=== PATIENT | female | born 1950 | race African-American/Black ===

== ENCOUNTER 2019-02-16 12:56 | Inpatient (IN) | payer MEDICARE, OTHER ==
[~2019-02-16] VITALS: Ht 157.5 cm; Wt 136.4 kg
--- NOTE | ~2019-02-16 | OP ---
PATIENT NAME: RICHARD PARK MEDICAL RECORD: [id number] :46 LOCATION:D.M2 D.2138 ADMISSION DATE:02/16/19 SURGEON: ADOLPH RAUSCH MD DATE OF OPERATION: 02/18/2019 PREOPERATIVE DIAGNOSES: 1. End-stage renal disease. 2. Diabetes mellitus. 3. Atrial fibrillation. 4. Congestive heart failure, undifferentiated. 5. Hypertension. 6. Coronary artery disease. 7. Anemia of chronic disease. 8. Morbid obesity. 9. Dementia. POSTOPERATIVE DIAGNOSES: 1. End-stage renal disease. 2. Diabetes mellitus. 3. Atrial fibrillation. 4. Congestive heart failure, undifferentiated. 5. Hypertension. 6. Coronary artery disease. 7. Anemia of chronic disease. 8. Morbid obesity. 9. Dementia. PROCEDURE: 1. Right IJ 19 cm HemoSplit catheter placement. 2. Fluoroscopic interpretation. SURGEON: Adolph Rausch MD REPORT OF PROCEDURE: The patient's right neck was prepped and draped in sterile fashion. Using ultrasound guidance, we visualized the right internal jugular vein. A total of 10 mL of 1% lidocaine with epinephrine was infused into the surrounding tissues of the neck and the right chest. A needle was used to cannulate the right internal jugular vein under ultrasound guidance. A guidewire was then advanced with ease. Fluoro was used to note that the wire was in good position in the venous system. A skin incision was made on the right lateral chest and the 19-cm HemoSplit was tunneled between this and the wire exit site. The multiple dilators were placed over the wire followed by the dilator trocar device. The wire and dilator were removed and the catheter tips was advanced through the trocar. The trocar was then removed and the catheter was pulled back until it was in good position at the right atrial superior vena caval junction. The catheter aspirated nonpulsatile dark blood and flushed easily with heparinized saline. This was sutured into place with 2-0 Prolenes and the skin incisions were closed with subcutaneous 5-0 Monocryl. COMPLICATIONS: None. CONDITION: Stable. ANESTHESIA: TIVA and local. OPERATIVE REPORT [id number] RICHARD PARK BLOOD LOSS: 30 mL. TRANSINT:[id number] Voice Confirmation ID: [id number] DOCUMENT ID: [id number] ADOLPH RAUSCH MD CC: [id number] DICTATION DATE: 02/18/19 1212 CUSTOMS COMPLIANCE DIRECTOR: 02/18/19 1509 ADM IN [facility] [address] [facility]
--- NOTE | 2019-02-16 13:30 | NUR ---
NEW PATIENT DIRECT ADMIT FROM REHAB FACILITY. PATIENT TRANSPORTED TO ROOM VIA WC AND KRYSTEN PAD VIA REHAB FACILITY PERSONNEL. WITH PT ASSIST AND KRYSTEN LIFT, PATIENT TRANSFERED TO BED. ORIENTED PATIENT TO ROOM AND CALL LIGHT. PATIENT IS LETHARGIC AND SPEECH IS SLURRED. VSS. IV TO RT FA 22 G WITH ONE ATTEMPT AND IS SL. PATIENT CHANGED INTO GOWN . PATIENT DENIES ANY NEEDS OR PAIN. WILL CONTINUE WITH PLAN OF CARE. SR UP X 2 BED IN LOW POSTION AND CALL LIGHT IN REACH.
[2019-02-16 15:04] LABS: BASOPHILS 0.1 % (0-2); EOSINOPHILS 1.4 % (0-7); HEMATOCRIT 26.6 % (36.0-48.0); HEMOGLOBIN 8.2 g/dL (12-16); IMMATURE GRANULOCYTES 0.3 % (0-5); LYMPHOCYTES 31.4 % (15-50); MCH 26.9 pg (26.0-34.0); MCHC 30.8 g/dL (31.0-37.0); MCV 87.2 fL (80.0-100.0); MEAN PLATELET VOLUME 9.4 fL (7.4-10.4); MONOCYTES 12.7 % (2-11); NEUTROPHILS 54.1 % (40-80); PLATELET COUNT 184 10x3/uL (130-400); RBC 3.05 10x6/uL (4.00-5.40); RDW 19.3 % (11.5-14.5); WBC 7.2 10x3/uL (4.8-10.8)
[2019-02-16 15:20] LABS: ALBUMIN 2.9 g/dL (3.4-5.0); ANION GAP 15.3 mmol/L (8-16); BILIRUBIN - TOTAL 1.04 mg/dL (0.2-1.3); CALCIUM 8.4 mg/dL (8.5-10.1); CARBON DIOXIDE 26.9 mmol/L (21.0-32.0); CREATININE - SERUM 3.5 mg/dL (0.6-1.3); PHOSPHOROUS 5.1 mg/dL (2.5-4.9); POTASSIUM - SERUM 4.2 mmol/L (3.5-5.1)
[2019-02-16 15:24] VITALS: BP 133/53
[2019-02-16] MEDS ORDERED: LANTUS SOL100 UNIT/1 SC (17:26)
[2019-02-16] MEDS ORDERED: NOVOLOG100 UNIT/1 SC (17:27)
[2019-02-16] MEDS ORDERED: PACERONE200 MG PO (17:28)
[2019-02-16] MEDS ORDERED: LIPITOR10 MG PO (17:29)
[2019-02-16] MEDS ORDERED: DOK100 MG PO (17:30)
[2019-02-16] MEDS ORDERED: BUMETANIDE0.5 MG PO (17:33)
[2019-02-16] MEDS ORDERED: COREG6.25 MG PO (17:35)
[2019-02-16] MEDS ORDERED: ACETAMINOPHEN500 M1 PO (17:36)
[2019-02-16] MEDS ORDERED: FLUTICASONE PRO16 GM NASAL (17:37)
[2019-02-16] MEDS ORDERED: NAMENDA10 MG PO (17:38)
[2019-02-16] MEDS ORDERED: ASPIRIN EC81 M1 PO (17:38)
--- NOTE | 2019-02-16 19:10 | NUR ---
PT SNORING LOUDLY, AROUSES TO VERBAL STIMULI, ALERT TO NAME ONLY, DINNER TRAY NOTED WITH 0% GONE. OFFERED PT THICK NOURISHMENT. PT TOOK ONE SIP WITH HOB ABOVE 35 DEGREES. PT HAS CONFUSION AND NURSE ATTEMPTED TO REORIENT. RIGHT FOREARM 22G NOTED. SWAB CAP PLACED PT HAS A LAMAR CATH WITH SEDIMENT PRESENT. HEELS CHECKED FOR SORES, NO SORES RIGHT HEEL HAS DRYNESS. PT HAS +2 +3 EDEMA LOWER EXTREM. S1S2, LUNGS HAVE FINE CRACKLES AND SHALLOW BREATHS. PLACED NAME AND DATE ON BOARD. PT HAS NO S/S OF DISTRESS. WILL CPOC
[2019-02-16 19:52] VITALS: BP 138/73; BMI 55.2
[2019-02-16 22:50] VITALS: BP 87/66
--- NOTE | 2019-02-16 22:50 | NUR ---
PT FSBS IS 174, 2 UNITS GIVEN ORDERED. PT NEEDING A UA. CLAMPED LAMAR TO ATTEMPT TO OBTAIN UA. PT ALERT TO NAME ONLY, CALLED OUT IN CONFUSION TO A VISITOR WALKING BY. PT OFFERED NORISHMENT. PT BEDLOW AND CALL LIGHT IN REACH. WILL CPOC
--- NOTE | 2019-02-17 01:05 | NUR ---
PT RIGHT FOREARM 22G PIV OUT WITH CATH INTACT. PT PULLED OUT WHEN REMOVING GOWN AGAIN. PT ALERT TO NAME AND ONLY. COLLECTED URINE AND TOOK TO LAB. PT BEDLOW AND CALL LIGHT IN REACH. WILL CPOC
[2019-02-17 01:08] LABS: APPEARANCE CLEAR (CLEAR); BACTERIA FEW /hpf (NONE SEEN); BILIRUBIN NEGATIVE (NEGATIVE); COLOR YELLOW (YELLOW); EPITHELIAL CELLS NSEEN /hpf (0-5); GLUCOSE NEGATIVE (NEGATIVE); KETONE NEGATIVE (NEGATIVE); NITRITE NEGATIVE (NEGATIVE); PROTEIN NEGATIVE (NEGATIVE); RED CELLS - URINE NONE SEEN /hpf (0-5); UROBILINOGEN NORMAL (NORMAL)
--- NOTE | 2019-02-17 02:26 | NUR ---
2 UNSUCCESSSFUL ATTEMTPS FOLLOWED BY 3 UNSUCCESSFUL ATTEMPTS FROM ANOTHER MED 2 NURSE. WILL CALL ER OR ICU TO TRY AND OBTAIN ACCESS.
--- NOTE | 2019-02-17 03:00 | NUR ---
CALLED ICU ABOUT NEEDING AN ACCESS
--- NOTE | 2019-02-17 04:05 | NUR ---
ICU NURSE ATTEMPTED 2 TIMES. UNSUCCESSFUL BOTH ATTEMPTS WILL CPOC
--- NOTE | 2019-02-17 05:38 | NUR ---
LEFT FOREARM IV 20G PLACED. BUMEX GIVEN. PT INCONT A SMALL AMOUNT OF STOOL. CLEANED PT AND TURNED TO RIGHT SIDE. PT HAS NO S/S OF DISTRESS. BEDLOW AND CALL LIGHT IN REACH. WILL CPOC
[2019-02-17 05:41] VITALS: BP 119/48
--- NOTE | 2019-02-17 07:14 | NUR ---
FSBS IS 139 NO INSULIN GIVEN PER SLIDING SCALE
[2019-02-17 07:27] VITALS: BP 151/59
[2019-02-17 11:10] VITALS: BP 119/62
[2019-02-17 12:39] LABS: ANION GAP 13.5 mmol/L (8-16); CALCIUM 8.8 mg/dL (8.5-10.1); CARBON DIOXIDE 27.6 mmol/L (21.0-32.0); CREATININE - SERUM 3.4 mg/dL (0.6-1.3); POTASSIUM - SERUM 4.1 mmol/L (3.5-5.1)
[2019-02-17 12:55] VITALS: Ht 157.5 cm; Wt 136.4 kg
[2019-02-17 13:10] LABS: BASOPHILS 0.2 % (0-2); EOSINOPHILS 1.8 % (0-7); HEMATOCRIT 26.4 % (36.0-48.0); HEMOGLOBIN 8.1 g/dL (12-16); IMMATURE GRANULOCYTES 0.2 % (0-5); LYMPHOCYTES 38.6 % (15-50); MCH 26.7 pg (26.0-34.0); MCHC 30.7 g/dL (31.0-37.0); MCV 87.1 fL (80.0-100.0); MEAN PLATELET VOLUME 9.5 fL (7.4-10.4); MONOCYTES 13.2 % (2-11); PLATELET COUNT 185 10x3/uL (130-400); RBC 3.03 10x6/uL (4.00-5.40); RDW 19.6 % (11.5-14.5); WBC 5.6 10x3/uL (4.8-10.8)
[2019-02-17 15:22] VITALS: BP 123/36
--- NOTE | 2019-02-17 19:51 | NUR ---
PT ASLEEP, AROUSES TO VERBAL STIMULI, PT ALERT TO NAME ONLY, UNABLE TO TELL NURSE PLACE,TIME,SITUATION. PT HAS LEFT FOREARM IV, COVERED WITH A BANDAGE FOR PROTECTION. PT PULLING ON IT EARLIER TODAY AND IT TOOK MORE THAN 5 ATTEMPTS TO GET IV LAST NIGHT. ALARM ON AND ACTIVE. PT BEDLOW AND CALL LIGHT IN REACH. NAME AND DATE PLACED ON BOARD. WILL CPOC
[2019-02-17 20:00] VITALS: BP 119/65
--- NOTE | 2019-02-17 22:00 | NUR ---
FSBS IS 225 4 UNITS GIVEN ORDERED. TURNED PT OFF OF BACK. PT COMPLAINS OF HAVING DISCOMFORT. ALERT TO NAME ONLY. HAS CONFUSION. WILL CPOC
--- NOTE | 2019-02-17 23:55 | NUR ---
NIGHT MEDICATIONS GIVEN, CRUSHED MEDICATIONS INTO APPLE SAUCE. TYLENOL GIVEN FOR PAIN. REPOSITIONED PT AND PROVIDED ROSELINE CARE/LAMAR CARE. PT IS ALERT TO NAME ONLY, EDEMA NOTED +2 +3 LOWER EXTREM AND ABDOMEN PT ALARM ON AND ACTIVE. NO S/S OF DISTRESS. NPO AFTER MIDNIGHT FOR HEMASPLIT PLACEMENT TOMORROW. WILL CPOC
[2019-02-18] VITALS: BP 114/68
--- NOTE | 2019-02-18 01:02 | NUR ---
PT REPOSITIONED TO RIGHT SIDE. BEDLOW AND CALL LIGHT IN REACH. WILL CPOC
[2019-02-18 04:30] VITALS: BP 120/58
--- NOTE | 2019-02-18 07:49 | NUR ---
PT ASLEEP LYING ON BACK IN BED. DID NOT WAKE I ENTERED, DID NOT FURTHER DISTURB AT THIS TIME. NO SIGNS/SYMPTOMS OF DISTRESS NOTED AT THIS TIME. CL CHAZ, SRX2.
[2019-02-18 08:26] LABS: BASOPHILS 0.4 % (0-2); EOSINOPHILS 1.6 % (0-7); HEMATOCRIT 27.6 % (36.0-48.0); HEMOGLOBIN 8.4 g/dL (12-16); IMMATURE GRANULOCYTES 0.4 % (0-5); LYMPHOCYTES 37.5 % (15-50); MCH 26.6 pg (26.0-34.0); MCHC 30.4 g/dL (31.0-37.0); MCV 87.3 fL (80.0-100.0); MEAN PLATELET VOLUME 9.5 fL (7.4-10.4); MONOCYTES 13.8 % (2-11); NEUTROPHILS 46.3 % (40-80); PLATELET COUNT 174 10x3/uL (130-400); RBC 3.16 10x6/uL (4.00-5.40); RDW 19.3 % (11.5-14.5); WBC 5.7 10x3/uL (4.8-10.8)
[2019-02-18 08:30] VITALS: BP 110/41
[2019-02-18 08:48] LABS: BILIRUBIN - TOTAL 1.28 mg/dL (0.2-1.3); CALCIUM 8.7 mg/dL (8.5-10.1); CARBON DIOXIDE 27.9 mmol/L (21.0-32.0); CREATININE - SERUM 3.6 mg/dL (0.6-1.3); POTASSIUM - SERUM 3.9 mmol/L (3.5-5.1)
--- NOTE | 2019-02-18 08:59 | NUR ---
WHILE GIVING PT MORNING MEDS CRUSHED IN PUDDING, SHE SPIT THEM ALL OUT AND REFUSED ANOTHER ATTEMPT.
[2019-02-18 09:15] LABS: HEPATITIS C ANTIBODY 0.1 S/CO RAT (0.0-0.9)
--- NOTE | 2019-02-18 13:50 | NUR ---
Nutrition follow-up: Diet: Puree with nectar thick liquids PO intake poor to fair; pt has been spitting food out per nursing Pt nonverbal Labs reviewed Wt: 300# +BM, loose RDN following.
--- NOTE | 2019-02-18 15:04 | NUR ---
I have reviewed this patient and I concur with the Shift Assessment completed by the Licensed Practical Nurse today this shift.
--- NOTE | 2019-02-18 17:47 | MORECARE ---
CASE MANAGEMENT DISCHARGE SUMMARY PATIENT: RICHARD PARK UNIT: [id number] ADM DATE: 02/16/19 AGE: 68 : 48 SEX: F ROOM/BED: D.5387 AUTHOR: CORNELIUS LEON PHYSICIAN: REFERRING PHYSICIAN: KEENAN SILVA MD DATE OF SERVICE: 02/18/19 Discharge Plan Patient Name: RICHARD PARK Facility: [facility]:[place] : 1950 Planned Disposition: Penitentiary Facility Anticipated Discharge Date: Discharge Date: Expected LOS: Initial Reviewer: [id number] Initial Review Date: 02/16/2019 Generated: 02/18/19 6:46 pm Comments DCP- Discharge Planning Updated by [id number]: Franki Browne on 02/18/19 4:[address] Patient Name: RICHARD PARK Admission Status: Urgent Accout number: [id number] Admission Date: 02-16-2019 : 1950 Admission Diagnosis: Attending: Keenan Silva Current LOS: 2 Anticipated DC Date: Planned Disposition: Penitentiary Facility Primary Insurance: MEDICARE A & B PLANNED EXERNAL PROVIDER: [facility] BED Discharge Planning Comments: CM ATTEMPTED TO ASSESS PT IN ROOM FOR DISCHARGE NEEDS AFTER RECEIVING ORDERS FOR 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 PT WAS NOT ABLE TO PARTICIPATE IN ASSESSMENT. CM CALLED BOTH EMERGENCY CONTACTS LISTED FOR PT, SUMAYA ESTEVEZ, DAUGHTER, , THERE WAS NO ANSWER; VICKIE PARK, SPOUSE, , CM LEFT MESSAGE ASKING FOR RETURN CALL. CM DID NOT RECEIVE RETURN CALL. PT'S ADDRESS ON FACE SHEET INDICATES [facility]. CM SPOKE TO MAREK OF [facility], [phone], WHO VERIFIED PT IS IN REHAB AT [place] AND THEY PLAN TO ACCEPT BACK AT DISCHARGE. RN KIERRA HOUSE NOTIFIED [facility] OF ORDER FOR OUTPATIENT DIALYSIS CLINIC ARRANGEMENT. CM FAXED UPDATE TO [facility] DION JARA AT [phone]. FOR DISCHARGE, FAX DISCHARGE INFORMATION TO [facility] AT [phone]. NURSE REPORT TO BE CALLED TO [facility] AT [phone]. CM WATIING OUTPATIENT DIALYSIS CLINIC ARRANGEMENT AND MEDICAL STABILITY FOR PT TO RETURN TO REHAB. Bilingual Sales Consultant: Franki Browne DCPIA - Discharge Planning Initial Assessment Updated by [id number]: Franki Browne on 02/18/19 5:42 pm * Is the patient Alert and Oriented? No * Preadmission Environment Penitentiary Facility * Facility Name [facility] External Providers External Provider: [facility] Next Contact Date: 02/18/2019 Service Request Date: Service Type: Resolution: Reviewer: Comments: Patient Name: RICHARD PARK Page [phone] at 1747 All edits/amendments must be made on the electronic document DICTATION DATE: 02/18/191745 RESEARCH ENVIRONMENTAL SCIENTIST: RONNY 02/18/191745 RPT#: [id number] DC DATE: STATUS: ADM IN [facility] [address] [place] [address] END OF REPORT
--- NOTE | 2019-02-18 18:50 | NUR ---
NAHUN FLOWERS ASSISTED IN CHANGING THE PT. SHE HAD A SMALL, SOFT B.M. PT IS NOW CLEAN/DRY AND PROPPED UP WITH WEDGES ON HER RIGHT SIDE. WIPED SPITTLE OFF OF PTS MOUTH, SISTERS AT BEDSIDE. QUESTIONS ANSWERED TO THE BEST OF MY ABILITY. NO COMPLAINTS/CONCERNS VOICED AT THIS TIME. CL IN REACH, SRX2.
--- NOTE | 2019-02-18 19:22 | NUR ---
PT IN BED RESTING QUIETLY WITH EYES CLOSED. TWO SISTERS IN ROOM.
[2019-02-18 20:08] VITALS: BP 140/107
--- NOTE | 2019-02-19 00:35 | NUR ---
PT IN BED RESTING. EVEN AND UNLABORED RESPIRATIONS NOTED AT THIS TIME. SISTER AT BEDSIDE.
[2019-02-19 00:45] VITALS: BP 131/70
[2019-02-19 03:49] VITALS: BP 151/64
[2019-02-19 06:56] LABS: BASOPHILS 0.2 % (0-2); EOSINOPHILS 0.9 % (0-7); HEMATOCRIT 26.6 % (36.0-48.0); IMMATURE GRANULOCYTES 0.3 % (0-5); LYMPHOCYTES 31.5 % (15-50); MCH 26.2 pg (26.0-34.0); MCHC 30.1 g/dL (31.0-37.0); MCV 87.2 fL (80.0-100.0); MEAN PLATELET VOLUME 9.6 fL (7.4-10.4); MONOCYTES 15.6 % (2-11); NEUTROPHILS 51.5 % (40-80); RBC 3.05 10x6/uL (4.00-5.40); RDW 19.4 % (11.5-14.5); WBC 5.8 10x3/uL (4.8-10.8)
[2019-02-19 06:57] LABS: PLATELET COUNT 137 10x3/uL (130-400)
[2019-02-19 07:17] LABS: ALBUMIN 2.8 g/dL (3.4-5.0); ANION GAP 13.4 mmol/L (8-16); BILIRUBIN - TOTAL 1.45 mg/dL (0.2-1.3); CALCIUM 8.7 mg/dL (8.5-10.1); CARBON DIOXIDE 28.3 mmol/L (21.0-32.0); CREATININE - SERUM 2.9 mg/dL (0.6-1.3); PHOSPHOROUS 4.2 mg/dL (2.5-4.9); POTASSIUM - SERUM 3.7 mmol/L (3.5-5.1); PROTEIN - SERUM 6.8 g/dL (6.4-8.2)
--- NOTE | 2019-02-19 07:39 | NUR ---
PT AWAKE AND CONFUSED, BUT MUCH MORE AWAKE THAN THE PREVIOUS DAY. TALKING SOME, HARD TO UNDERSTAND. ALERT TO NAME. SISTER AT BEDSIDE. ANSWERED QUESTIONS/CONCERNS TO THE BEST OF MY ABILITY. CL IN REACH, SRX2.
[2019-02-19 08:31] VITALS: BP 141/84
--- NOTE | 2019-02-19 10:43 | NUR ---
I have reviewed this patient and I concur with the Shift Assessment completed by the Licensed Practical Nurse today this shift.
[2019-02-19 11:30] VITALS: BP 120/39
--- NOTE | 2019-02-19 12:57 | NUR ---
PT GONE TO DIALYSIS.
--- NOTE | 2019-02-19 15:55 | NUR ---
PT BACK FROM DIALYSIS. RESTING PEACEFULLY. BREATHS EVEN AND REGULAR NO SIGNS/SYMPTOMS OF DISTRESS. CL IN REACH, SRX2. NO FAMILY AT BEDSIDE
--- NOTE | 2019-02-19 17:12 | NUR ---
PT BEING ASSISTED WITH MEAL BY JONN ZHANG. NO COMPLAINTS/CONCERNS AT THIS TIME. PT TOLD THE TECH SHE DID NOT WANT TO EAT AND TO "TRY IT" IF IT WAS SO EDIBLE. NO OTHER COMPLAINTS/CONCERNS STATED AT THIS TIME. CL IN REACH, SRX2.
--- NOTE | 2019-02-19 19:39 | NUR ---
EVENING ROUNDS COMPLETED. REPORT RECEIVED. PT SITTING UP IN BED WITH EYES CLOSED, RR EVEN AND UNLABORED. BED IN LOW POSITION. NO S/S OF DISTRESS. CALL LIGHT INR REACH WILL CTM.
[2019-02-19 20:14] VITALS: BP 102/24
[2019-02-19 23:45] VITALS: BP 135/52
[2019-02-20 03:49] VITALS: BP 118/58
--- NOTE | 2019-02-20 04:28 | NUR ---
I have reviewed this patient and I concur with the Shift Assessment completed by the Licensed Practical Nurse today this shift.
[2019-02-20 06:03] LABS: BASOPHILS 0.2 % (0-2); EOSINOPHILS 1.1 % (0-7); HEMATOCRIT 26.3 % (36.0-48.0); IMMATURE GRANULOCYTES 0.2 % (0-5); LYMPHOCYTES 32.8 % (15-50); MCH 26.8 pg (26.0-34.0); MCHC 30.4 g/dL (31.0-37.0); MEAN PLATELET VOLUME 10.2 fL (7.4-10.4); MONOCYTES 16.8 % (2-11); NEUTROPHILS 48.9 % (40-80); PLATELET COUNT 131 10x3/uL (130-400); RBC 2.99 10x6/uL (4.00-5.40); RDW 19.3 % (11.5-14.5); WBC 5.4 10x3/uL (4.8-10.8)
[2019-02-20 06:29] LABS: ALBUMIN 2.8 g/dL (3.4-5.0); ANION GAP 10.6 mmol/L (8-16); BILIRUBIN - TOTAL 1.23 mg/dL (0.2-1.3); CALCIUM 8.6 mg/dL (8.5-10.1); CREATININE - SERUM 2.6 mg/dL (0.6-1.3); PHOSPHOROUS 3.6 mg/dL (2.5-4.9); POTASSIUM - SERUM 3.6 mmol/L (3.5-5.1); PROTEIN - SERUM 6.6 g/dL (6.4-8.2)
--- NOTE | 2019-02-20 07:32 | NUR ---
PT AWAKE/CONFUSED. ORIENTED TO NAME AND SITUATION. N OCOMPALITNS/CONCERNS/QUESTIONS VOICED AT THIS TIME. CL IN REACH, SRX2. BROTHER AT BEDSIDE SLEEPING.
--- NOTE | 2019-02-20 09:57 | NUR ---
PT PULLED OFF DRESSING ON HEMASPLIT. WILL REDO FOLLOWING STANDARD PROTOCOL FOR CENTRAL LINE DRESSINGS
[2019-02-20 10:00] VITALS: BP 104/41
--- NOTE | 2019-02-20 10:10 | NUR ---
CENTRAL LINE DRESSING APPLIED TO RIGHT CHEST HEMASPLIT. PT IS RESTING PEACEFULLY. BROTHER AT BEDSIDE ALSO RESTING. CL IN REACH, SRX2.
--- NOTE | 2019-02-20 13:36 | NUR ---
PT RECIEVED [facility] BED BATH. HAD LARGE SOFT B.M. LINNENS CHANGED. PT IS CONFUSED BUT NO CHANGES FROM HER BASELINE. NOW RESTING COMFORTABLY.
[2019-02-20 16:43] VITALS: BP 121/46
[2019-02-20 17:14] VITALS: BP 129/66
--- NOTE | 2019-02-20 17:43 | NUR ---
I have reviewed this patient and I concur with the Shift Assessment completed by the Licensed Practical Nurse today this shift.
--- NOTE | 2019-02-20 18:00 | NUR ---
PT RESTING PEACEFULLY, ATTEMPTED TO WAKE FOR SUPPER BUT SHE WASN'T READY TO EAT. BROTHER ALSO SLEEPING, IN BEDSIDE RECLINER. DID NOT FURTHER DISTURB AT THSI TIME. CL IN REACH, SRX2.
[2019-02-20 19:55] VITALS: BP 123/52
--- NOTE | 2019-02-20 19:57 | NUR ---
EVENING ROUNDS COMPLETED. REPORT RECEIVED. PT SITTING UP IN BED WITH EYES OPEN, RR EVEN AND UNLABORED. NO S/S OF DISTRESS NOTED. AT BEDSIDE. BED IN LOW POSITION. INTRODUCED SELF TO PT. PT DENIES FURTHER NEEDS AT THIS TIME. CALL LIGHT IN REACH. WILL CTM.
[2019-02-21 03:43] VITALS: BP 121/41
--- NOTE | 2019-02-21 04:09 | NUR ---
I have reviewed this patient and I concur with the Shift Assessment completed by the Licensed Practical Nurse today this shift.
[2019-02-21 05:00] LABS: BASOPHILS 0.3 % (0-2); EOSINOPHILS 1.4 % (0-7); HEMATOCRIT 27.3 % (36.0-48.0); HEMOGLOBIN 8.4 g/dL (12-16); IMMATURE GRANULOCYTES 0.3 % (0-5); LYMPHOCYTES 37.7 % (15-50); MCH 26.9 pg (26.0-34.0); MCHC 30.8 g/dL (31.0-37.0); MCV 87.5 fL (80.0-100.0); MEAN PLATELET VOLUME 9.2 fL (7.4-10.4); MONOCYTES 14.1 % (2-11); NEUTROPHILS 46.2 % (40-80); PLATELET COUNT 130 10x3/uL (130-400); RBC 3.12 10x6/uL (4.00-5.40); RDW 19.3 % (11.5-14.5); WBC 6.2 10x3/uL (4.8-10.8)
[2019-02-21 05:23] LABS: ALBUMIN 2.9 g/dL (3.4-5.0); ANION GAP 13.7 mmol/L (8-16); BILIRUBIN - TOTAL 1.13 mg/dL (0.2-1.3); CALCIUM 8.4 mg/dL (8.5-10.1); CARBON DIOXIDE 27.9 mmol/L (21.0-32.0); CREATININE - SERUM 2.8 mg/dL (0.6-1.3); PHOSPHOROUS 3.9 mg/dL (2.5-4.9); POTASSIUM - SERUM 3.6 mmol/L (3.5-5.1); PROTEIN - SERUM 6.6 g/dL (6.4-8.2)
[2019-02-21 07:38] VITALS: BP 145/49
--- NOTE | 2019-02-21 07:44 | NUR ---
ROUNDING DONE WITH PATIENT SITTING UP IN BED, OBESE ABDOMEN. AT BEDSDIE. ON ROOM AIR. RIGHT CHEST HEMISPLIT SEEN WITH C/D/I DRESSING. LEFT FA PIV SEEN WITH SALINE LOCK, ORANGE SWAB CAP IN USE. STOCKINGNETTE COVERING SITE. LAMAR CATH PATENT WITH URINE. WILL MONITOR
--- NOTE | 2019-02-21 10:09 | NUR ---
REPOSITIONED TO LEFT SIDE WITH MYSELF AND FABIANO WRAY LPN USING THE FULLER PULL SLIP AND PLACING THE TWO BLACK WEDGES UNDER HER. PATIENT HAS GENERALIZED EDEMA TO LEGS, 3-4+ TO BILATERAL FEET. SKIN TO BOTTOM IS INTACT. WILL CONTINUE TO FOLLOW AND ASSESS FOR NEEDS. AWAITING TO SEE IF PATIENT WITH GO TO DIALYSIS TODAY.
--- NOTE | 2019-02-21 10:51 | NUR ---
TO DIALYSIS VIA BED.
--- NOTE | 2019-02-21 13:27 | NUR ---
STILL IN DIALYSIS.
--- NOTE | 2019-02-21 13:55 | NUR ---
RETURNS FROM DIALYSIS VIA BED. WANTS TO EAT.
--- NOTE | 2019-02-21 15:05 | NUR ---
PATIENT TURNED TO BACK/SLIGHTLY RIGHT SIDE WITH WEDGES PAST EATING LUNCH PAST DIALYSIS. CALL LIGHT IN USE.
[2019-02-21 16:14] VITALS: BP 128/51
[2019-02-21 20:00] VITALS: BP 128/52
--- NOTE | 2019-02-21 21:52 | NUR ---
EVENING ROUNDS COMPLETED. REPORT RECEIVED. PT SITTING UP IN BED WITH EYES CLOSED, RR EVEN AND UNLABORED. BED IN LOW POSITION. NO S/S OF DISTRESS NOTED. AT BEDSIDE. CALL LIGHT IN REACH. WILL CTM.
[2019-02-22] VITALS: BP 116/47
--- NOTE | 2019-02-22 03:23 | NUR ---
I have reviewed this patient and I concur with the Shift Assessment completed by the Licensed Practical Nurse today this shift.
[2019-02-22 04:00] VITALS: BP 111/50
[2019-02-22 06:35] LABS: ALBUMIN 2.7 g/dL (3.4-5.0); ANION GAP 11.8 mmol/L (8-16); BILIRUBIN - TOTAL 1.17 mg/dL (0.2-1.3); CALCIUM 8.1 mg/dL (8.5-10.1); CARBON DIOXIDE 28.6 mmol/L (21.0-32.0); CREATININE - SERUM 2.3 mg/dL (0.6-1.3); PHOSPHOROUS 3.2 mg/dL (2.5-4.9); POTASSIUM - SERUM 3.4 mmol/L (3.5-5.1); PROTEIN - SERUM 6.4 g/dL (6.4-8.2)
[2019-02-22 06:48] LABS: HEMATOCRIT 26.4 % (36.0-48.0); HEMOGLOBIN 8.2 g/dL (12-16); LYMPHOCYTES 34.7 % (15-50); MCH 27.6 pg (26.0-34.0); MCHC 31.1 g/dL (31.0-37.0); MCV 88.9 fL (80.0-100.0); MEAN PLATELET VOLUME 9.6 fL (7.4-10.4); NEUTROPHILS 50.8 % (40-80); PLATELET COUNT 108 10x3/uL (130-400); RBC 2.97 10x6/uL (4.00-5.40); RDW 19.6 % (11.5-14.5); WBC 5.6 10x3/uL (4.8-10.8)
--- NOTE | 2019-02-22 07:00 | NUR ---
ROUNDING DONE WITH PATIENT LAYING SLIGHTLY TO LEFT SIDE WITH EYES CLOSED, RESP ARE EVEN. SPOUSE IN CHAIR ASLEEP. HOB UP ON PATIENT AT 30 DEGREES. RIGHT CHEST HEMISPLIT IS SEEN WITH DRESSING C/D/I. LEFT WRIST PIV SEEN WITH SALINE LOCK, ORANGE SWAB CAP IN USE. CHRONIC LAMAR IN USE WITH DARK YELLOW URINE. WILL CPOC.
[2019-02-22 07:54] VITALS: BP 119/50
--- NOTE | 2019-02-22 08:31 | NUR ---
PATIENT TO PULL HER IV OUT AGAIN THIS AM. I TALKED TO BRENT BAEZ APN AND WILL RECEIVE NEW ORDERS.
--- NOTE | 2019-02-22 10:21 | NUR ---
TO DIALYSIS VIA BED.
--- NOTE | 2019-02-22 12:18 | NUR ---
STILL IN DIALYSIS AT THIS TIME.
--- NOTE | 2019-02-22 12:51 | NUR ---
RETURNS FROM DIALYSIS.
[2019-02-22 17:02] VITALS: BP 124/52
--- NOTE | 2019-02-22 19:30 | NUR ---
PATIENT LAYING IN BED. NO COMPLAINTS AT THIS TIME. NO DISTRESS NOTED.
[2019-02-22 20:00] VITALS: BP 120/46
[2019-02-23] VITALS: BP 112/61
--- NOTE | 2019-02-23 01:29 | NUR ---
PATIENT LAYING IN BED, EYES CLOSED, CHEST RISING AND FALLING. NO DISTRESS NOTED. AT BEDSIDE.
--- NOTE | 2019-02-23 02:20 | NUR ---
I have reviewed this patient and I concur with the Shift Assessment completed by the Licensed Practical Nurse today this shift.
[2019-02-23 04:00] VITALS: BP 122/47
[2019-02-23 05:43] LABS: BASOPHILS 0.2 % (0-2); EOSINOPHILS 0.8 % (0-7); HEMATOCRIT 25.8 % (36.0-48.0); HEMOGLOBIN 7.9 g/dL (12-16); IMMATURE GRANULOCYTES 0.3 % (0-5); LYMPHOCYTES 41.5 % (15-50); MCH 26.2 pg (26.0-34.0); MCHC 30.6 g/dL (31.0-37.0); MEAN PLATELET VOLUME 9.8 fL (7.4-10.4); MONOCYTES 12.3 % (2-11); NEUTROPHILS 44.9 % (40-80); PLATELET COUNT 103 10x3/uL (130-400); RBC 3.02 10x6/uL (4.00-5.40); WBC 6.2 10x3/uL (4.8-10.8)
[2019-02-23 05:58] LABS: MCV 85.4 fL (80.0-100.0)
[2019-02-23 06:15] LABS: ANION GAP 13.1 mmol/L (8-16); CALCIUM 8.2 mg/dL (8.5-10.1); CARBON DIOXIDE 26.4 mmol/L (21.0-32.0); CREATININE - SERUM 2.4 mg/dL (0.6-1.3); PHOSPHOROUS 3.1 mg/dL (2.5-4.9); POTASSIUM - SERUM 3.5 mmol/L (3.5-5.1)
--- NOTE | 2019-02-23 07:21 | NUR ---
MORNING ROUNDS MADE. PT LAYING IN BED RESTING COMFORTABLY. DENIES FURTHER CONCERNS AT THIS TIME. WILL CTM.
[2019-02-23 08:05] LABS: % SATURATION 5 % (15-55); IRON 17 ug/dl (35-150); TOTAL IRON BIND CAPACITY 297 ug/dl (260-445); UNSAT IRON BIND CAPACITY 280 ug/dl (150-375)
--- NOTE | 2019-02-23 09:05 | NUR ---
PT SITTING UP IN BED RESTING. VITALS STABLE. TOOK MEDS ONE AT A TIME, SWALLOWED WITHOUT DIFFICULTY. THICKENED WATER. FAMILY AT BEDSIDE. ASSISTED UP ON PILLOWS. NO FURTHER CONCERNS AT THIS TIME. WILL CTM.
--- NOTE | 2019-02-23 11:04 | MORECARE ---
CASE MANAGEMENT DISCHARGE SUMMARY PATIENT: RICHARD DING UNIT: [id number] ADM DATE: 02/16/19 AGE: 68 : 48 SEX: F ROOM/BED: D.4434 AUTHOR: CORNELIUS LEON PHYSICIAN: REFERRING PHYSICIAN: KEENAN SILVA MD DATE OF SERVICE: 02/23/19 Discharge Plan Patient Name: RICHARD DING Facility: [facility]:[place] : 1950 Planned Disposition: Senior Living Facility Anticipated Discharge Date: Discharge Date: Expected LOS: Initial Reviewer: [id number] Initial Review Date: 02/16/2019 Generated: 02/23/19 12:04 pm Comments DCP- Discharge Planning Updated by [id number]: Franki Browne on 02/23/19 10:[address] Patient Name: RICHARD DING Encounter No: [id number] : 1950 Primary Insurance: MEDICARE A & B Anticipated DC Date: Planned Disposition: Senior Living Facility External Planned Provider: [facility] Discharge Planning Comments: CM SPOKE TO PT AND SPOUSE, COY, IN ROOM REGARDING DISCHARGE PLANNING AND NEEDS. SPOUSE CONFIRMS PLAN FOR PT TO RETURN TO [facility] FOR REHAB AT DISCHARGE. PT'S DAUGHTER WORKS THERE. SENIOR LIVING FACILITY LISTING GIVEN, CHOICE SIGNED FOR [facility]. IMPORTANT MESSAGE FROM MEDICARE PROVIDED AND EXPLAINED. CM SPOKE TO MAREK OF [facility] AT [facility], WHO VERIFIED PT IS IN REHAB AT [facility] AND THEY PLAN TO ACCEPT BACK AT DISCHARGE. MAREK MET WITH PT AND SPOUSE IN ROOM. FOR DISCHARGE, FAX DISCHARGE INFORMATION TO [facility] AT [phone]. NURSE REPORT TO BE CALLED TO [facility] AT [phone]. CM WATIING OUTPATIENT DIALYSIS CLINIC ARRANGEMENT AND MEDICAL STABILITY FOR PT TO RETURN TO REHAB. 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 PT WAS NOT ABLE TO PARTICIPATE IN ASSESSMENT. CM CALLED BOTH EMERGENCY CONTACTS LISTED FOR PT, SUMAYA ESTEVEZ, DAUGHTER, , THERE WAS NO ANSWER; RUBIO DING, SPOUSE, , CM LEFT MESSAGE ASKING FOR RETURN CALL. CM DID NOT RECEIVE RETURN CALL. PT'S ADDRESS ON FACE SHEET INDICATES [facility]. CM SPOKE TO MAREK OF [facility], [phone], WHO VERIFIED PT IS IN REHAB AT [facility] AND THEY PLAN TO ACCEPT BACK AT DISCHARGE. RN KIERRA CHRISTY NOTIFIED [facility] OF ORDER FOR OUTPATIENT DIALYSIS CLINIC ARRANGEMENT. CM FAXED UPDATE TO [facility] DION JEWELLY AT [phone]. FOR DISCHARGE, FAX DISCHARGE INFORMATION TO [facility] AT [phone]. NURSE REPORT TO BE CALLED TO [facility] AT [phone]. CM WATIING OUTPATIENT DIALYSIS CLINIC ARRANGEMENT AND MEDICAL STABILITY FOR PT TO RETURN TO REHAB. Concrete Batching Plant Operator: Franki Browne DCPIA - Discharge Planning Initial Assessment Updated by [id number]: Franki Browne on 02/18/19 5:42 pm * Is the patient Alert and Oriented? No * Preadmission Environment Senior Living Facility * Facility Name [facility] Coverage Notice Reviewer: [id number] Zina Browne Notice Issued Date-Time: 02/23/2019 8:25 Notice Type: Patient Choice Letter Notice Delivered To: Family Member Relationship to Patient: Spouse Meteorologist Liaison Name: rubio ding Delivery Method: HAND - Hand Delivered Hazel Days: Prior Verbal Notification: Recipient Understood Notice: Yes Recipient Signature: Yes Med Rec Note Co-signed by Attending: Coverage Notice Comment: carine guadalupe Reviewer: [id number] Zina Browne Notice Issued Date-Time: 02/23/2019 8:25 Notice Type: IM Discharge Notice Notice Delivered To: Family Member Relationship to Patient: Spouse Meteorologist Liaison Name: rubio ding Delivery Method: HAND - Hand Delivered Hazel Days: Prior Verbal Notification: Recipient Understood Notice: Yes Recipient Signature: Yes Med Rec Note Co-signed by Attending: Coverage Notice Comment: Last DP export: 02/18/19 4:47 p Patient Name: RICHARD DING Page 11975 at 1104 All edits/amendments must be made on the electronic document DICTATION DATE: 02/23/191102 MILITARY TECHNOLOGY MANAGER: RONNY 02/23/191102 RPT#: [id number] DC DATE: STATUS: ADM IN [facility] [address] [place] [address] END OF REPORT
[2019-02-23 11:59] VITALS: BP 102/57
--- NOTE | 2019-02-23 13:57 | NUR ---
Nutritional follow-up: Diet: Renal ADA puree with honey thick liquids PO intake improved; now ~75% average of meals Labs reviewed Wt: 301# RDN following.
--- NOTE | 2019-02-23 14:07 | NUR ---
I have reviewed this patient and I concur with the Shift Assessment completed by the Licensed Practical Nurse today this shift.
[2019-02-23 16:54] VITALS: BP 136/53
--- NOTE | 2019-02-23 19:37 | NUR ---
PATIENT LAYING IN BED. EYES CLOSED, CHEST RISING AND FALLING. NO DISTRESS NOTED. AT BEDSIDE,.
[2019-02-23 20:00] VITALS: BP 120/47
--- NOTE | 2019-02-23 21:41 | NUR ---
PATIENT WOKEN TO TAKE PM MEDICATIONS, PATIENT REFUSED TO TAKE LIPITOR. PATIENT WAS HARD TO WAKE. STATES SHE HAS DAYS THAT SHE SLEEPS HARD. WHEN NAME WAS CALLED SHE WOULD SQUINT HER EYES. COLD WASH CLOTH ON FOREHEAD WOKE PATIENT UP WHERE SHE STATED "LEAVE ME ALONE, I DON'T WANT TO TAKE ANY PILLS. I JUST WANT TO SLEEP."
[2019-02-24] VITALS: BP 127/57
--- NOTE | 2019-02-24 03:04 | NUR ---
PATIENT LAYING IN BED, EYES CLOSED, CHEST RISING AND FALLING. AT BEDSIDE.
[2019-02-24 04:00] VITALS: BP 123/81
[2019-02-24 04:45] LABS: BASOPHILS 0.3 % (0-2); EOSINOPHILS 1.4 % (0-7); HEMOGLOBIN 8.3 g/dL (12-16); IMMATURE GRANULOCYTES 0.3 % (0-5); LYMPHOCYTES 39.4 % (15-50); MCH 26.3 pg (26.0-34.0); MCHC 30.7 g/dL (31.0-37.0); MCV 85.7 fL (80.0-100.0); MEAN PLATELET VOLUME 10.1 fL (7.4-10.4); MONOCYTES 15.1 % (2-11); NEUTROPHILS 43.5 % (40-80); RBC 3.15 10x6/uL (4.00-5.40); WBC 6.3 10x3/uL (4.8-10.8)
[2019-02-24 04:46] LABS: PLATELET COUNT 127 10x3/uL (130-400)
[2019-02-24 04:59] LABS: ANION GAP 11.4 mmol/L (8-16); CALCIUM 8.5 mg/dL (8.5-10.1); CARBON DIOXIDE 28.3 mmol/L (21.0-32.0); POTASSIUM - SERUM 3.7 mmol/L (3.5-5.1)
--- NOTE | 2019-02-24 06:00 | NUR ---
PATIENT LAYING IN BED. NO COMPLAINTS AT THIS TIME. NO DISTRESS NOTED. AT BEDSIDE.
[2019-02-24 07:34] VITALS: BP 118/52
--- NOTE | 2019-02-24 09:52 | MORECARE ---
CASE MANAGEMENT DISCHARGE SUMMARY PATIENT: RICHARD DING UNIT: [id number] ADM DATE: 02/16/19 AGE: 68 : 48 SEX: F ROOM/BED: D.8107 AUTHOR: CORNELIUS LEON PHYSICIAN: REFERRING PHYSICIAN: KEENAN SILVA MD DATE OF SERVICE: 02/24/19 Discharge Plan Patient Name: RICHARD DING Facility: [facility]:[place] : 1950 Planned Disposition: Senior Living Facility Anticipated Discharge Date: Discharge Date: Expected LOS: Initial Reviewer: [id number] Initial Review Date: 02/16/2019 Generated: 02/24/19 10:52 am Comments DCP- Discharge Planning Updated by [id number]: Franki Browne on 02/24/19 8:[address] Patient Name: RICHARD DING Encounter No: [id number] : 1950 Primary Insurance: MEDICARE A & B Anticipated DC Date: Planned Disposition: Senior Living Facility External Planned Provider: [facility] REH[facility] B[facility] Discharge Planning Comments: CM FAXED UPDATE TO [facility] AT [phone]. [facility] IS WORKING ON OUTPATIENT DIALYSIS CLINIC ARRANGEMENT. FOR DISCHARGE, FAX DISCHARGE INFORMATION TO [facility] AT [phone]. NURSE REPORT TO BE CALLED TO [facility] AT [phone]. [facility] TO ARRANGE VAN TRASPORTATION. Automation Tech: Franki Browne DCP- Discharge Planning Updated by [id number]: Franki Browne on 02/23/19 10:[address] Patient Name: RICHARD DING Encounter No: [id number] : 1950 Primary Insurance: MEDICARE A & B Anticipated DC Date: Planned Disposition: Senior Living Facility External Planned Provider: [facility] Discharge Planning Comments: CM SPOKE TO PT AND SPOUSE, COY, IN ROOM REGARDING DISCHARGE PLANNING AND NEEDS. SPOUSE CONFIRMS PLAN FOR PT TO RETURN TO [facility] FOR REHAB AT DISCHARGE. PT'S DAUGHTER WORKS THERE. NURSING HOME FACILITY LISTING GIVEN, CHOICE SIGNED FOR [facility]. IMPORTANT MESSAGE FROM MEDICARE PROVIDED AND EXPLAINED. CM SPOKE TO MAREK OF [facility] AT [facility], WHO VERIFIED PT IS IN REHAB AT [place] AND THEY PLAN TO ACCEPT BACK AT DISCHARGE. MAREK MET WITH PT AND SPOUSE IN ROOM. FOR DISCHARGE, FAX DISCHARGE INFORMATION TO [facility] AT [phone]. NURSE REPORT TO BE CALLED TO [facility] AT [phone]. CM WATIING OUTPATIENT DIALYSIS CLINIC ARRANGEMENT AND MEDICAL STABILITY FOR PT TO RETURN TO REHAB. Automation Tech: Franki Browne DCP- Discharge Planning Updated by [email or web address]: Frnaki Browne on 02/18/19 4:[address] Patient Name: RICHARD DING Admission Status: Urgent Accout number: [id number] Admission Date: 02-16-2019 : 1950 Admission Diagnosis: Attending: Keenan Silva Current LOS: 2 Anticipated DC Date: Planned Disposition: Senior Living Facility Primary Insurance: MEDICARE A & B PLANNED EXERNAL PROVIDER: [facility] MEDICARE REHAB BED Discharge Planning Comments: CM ATTEMPTED TO ASSESS PT IN ROOM FOR DISCHARGE NEEDS AFTER RECEIVING ORDERS FOR PETROLEUM REFINERY WORKER CONSULT AND OUTPATIENT DIALYSIS UNIT ARRANGEMENT. PT WAS NOT ABLE TO PARTICIPATE IN ASSESSMENT. CM CALLED BOTH EMERGENCY CONTACTS LISTED FOR PT, SUMAYA ESTEVEZ, DAUGHTER, , THERE WAS NO ANSWER; RUBIO DING, SPOUSE, , CM LEFT MESSAGE ASKING FOR RETURN CALL. CM DID NOT RECEIVE RETURN CALL. PT'S ADDRESS ON FACE SHEET INDICATES [facility]. CM SPOKE TO MAREK OF [facility], [phone], WHO VERIFIED PT IS IN REHAB AT [place] AND THEY PLAN TO ACCEPT BACK AT DISCHARGE. RN HOUSE NOTIFIED [facility] OF ORDER FOR OUTPATIENT DIALYSIS CLINIC ARRANGEMENT. CM FAXED UPDATE TO [facility] AT [phone]. FOR DISCHARGE, FAX DISCHARGE INFORMATION TO [facility] AT [phone]. NURSE REPORT TO BE CALLED TO [facility] AT [phone]. CM WATIING OUTPATIENT DIALYSIS CLINIC ARRANGEMENT AND MEDICAL STABILITY FOR PT TO RETURN TO REHAB. Automation Tech: Franki Browne DCPIA - Discharge Planning Initial Assessment Updated by [id number]: Franki Browne on 02/18/19 5:42 pm * Is the patient Alert and Oriented? No * Preadmission Environment Senior Living Facility * [facility] Coverage Notice Reviewer: [id number] Zina Browne Notice Issued Date-Time: 02/23/2019 8:25 Notice Type: Patient Choice Letter Notice Delivered To: Family Member Relationship to Patient: Spouse Education Supervisor Name: rubio ding Delivery Method: HAND - Hand Delivered Hazel Days: Prior Verbal Notification: Recipient Understood Notice: Yes Recipient Signature: Yes Med Rec Note Co-signed by Attending: Coverage Notice Comment: carine ferris Reviewer: [id number] Zina Browne Notice Issued Date-Time: 02/23/2019 8:25 Notice Type: IM Discharge Notice Notice Delivered To: Family Member Relationship to Patient: Spouse Education Supervisor Name: rubio ding Delivery Method: HAND - Hand Delivered Hazel Days: Prior Verbal Notification: Recipient Understood Notice: Yes Recipient Signature: Yes Med Rec Note Co-signed by Attending: Coverage Notice Comment: Last DP export: 02/23/19 10:04 a Patient Name: RICHARD DING Page 11272 at 0952 All edits/amendments must be made on the electronic document DICTATION DATE: 02/24/1953 CHUCKING AND BORING MACHINE OPERATOR: RONNY 02/24/1953 RPT#: [id number] DC DATE: STATUS: ADM IN [facility] [address] [place] [address] END OF REPORT
[2019-02-24 11:52] VITALS: BP 114/54
--- NOTE | 2019-02-24 15:20 | NUR ---
PATIENT RESTING. RESTING. CL IN REACH. WCTM
[2019-02-24 16:22] VITALS: BP 115/49
--- NOTE | 2019-02-24 16:23 | NUR ---
PATIENT IN DIALYSIS. FAMILY IN ROOM.
--- NOTE | 2019-02-24 19:20 | NUR ---
REPORT RECIEVED AND ROUNDING COMPLETE. PT IS IN DIALYSIS AT THIS TIME.
--- NOTE | 2019-02-24 19:45 | NUR ---
PT BACK TO ROOM A THIS TIME. DIALYSIS WAS ABLR TO PULL 3L OFF TODAY. PT IS CONFUSED AND ONLY ORIENTED TO HERSELF. PT'S AT BEDISDE. NO OTHER NEEDS AT THIS TIME CALL LIGHT WITHIN REACH AND BED IN LOWEST POSITION.
[2019-02-24 20:00] VITALS: BP 113/36
--- NOTE | 2019-02-24 21:42 | NUR ---
I have reviewed this patient and I concur with the Shift Assessment completed by the Licensed Practical Nurse today this shift.
[2019-02-25] VITALS: BP 114/40
[2019-02-25 04:00] VITALS: BP 114/69
[2019-02-25 06:14] LABS: BASOPHILS 0.3 % (0-2); EOSINOPHILS 1.2 % (0-7); HEMATOCRIT 25.3 % (36.0-48.0); HEMOGLOBIN 7.7 g/dL (12-16); IMMATURE GRANULOCYTES 0.2 % (0-5); LYMPHOCYTES 30.9 % (15-50); MCHC 30.4 g/dL (31.0-37.0); MCV 85.5 fL (80.0-100.0); MEAN PLATELET VOLUME 9.5 fL (7.4-10.4); MONOCYTES 15.1 % (2-11); NEUTROPHILS 52.3 % (40-80); PLATELET COUNT 107 10x3/uL (130-400); RBC 2.96 10x6/uL (4.00-5.40); RDW 18.9 % (11.5-14.5); WBC 6.5 10x3/uL (4.8-10.8)
[2019-02-25 06:30] LABS: ANION GAP 7.4 mmol/L (8-16); CALCIUM 8.2 mg/dL (8.5-10.1); CARBON DIOXIDE 29.8 mmol/L (21.0-32.0); CREATININE - SERUM 2.4 mg/dL (0.6-1.3); POTASSIUM - SERUM 3.2 mmol/L (3.5-5.1)
--- NOTE | 2019-02-25 07:14 | NUR ---
PT AWAKE/ALERT, ORIENTED TO SELF. AT BEDSIDE. PT IS CLEAN AND DRY, NO COMPLAINTS/CONCERNS FROM PT OR FAMILY VOICED AT THIS TIME. CL IN REACH, SRX2.
[2019-02-25 08:12] VITALS: BP 124/45
--- NOTE | 2019-02-25 10:08 | NUR ---
I have reviewed this patient and I concur with the Shift Assessment completed by the Licensed Practical Nurse today this shift.
--- NOTE | 2019-02-25 11:27 | EC ---
PATIENT:RICHARD PARK DATE OF SERVICE: 02/16/19 SEX: F MEDICAL RECORD: [id number] DATE OF : [birth year] LOCATION:D.M2 D.213 AGE OF PATIENT: 68 ADMISSION DATE: 02/16/19 REFERRING PHYSICIAN: INTERPRETING PHYSICIAN: CAMILLA CAMEJO MD ECHOCARDIOGRAM REPORT ECHO CHARGES 4 ECHO COMPLETE Date: 02/16/19 CLINICAL DIAGNOSIS: CHF ECHOCARDIOGRAPHIC MEASUREMENTS (adult normal given) AC root (d.<3.7cm) 3.3 cm LV Septum d (<1.2 cm> 1.2 cm Valve Excursion 1.4 cm LV Septum (systole) 1.7 cm Left Atria (s.<4.0cm> 5.0 cm LVPW d(<1.2cm) 1.2 cm RV (d.<2.3cm) 3.5 cm LVPW (sytole) 1.6 cm LV diastole(<5.6CM) 6.3 cm MV E-F(>70mm/sec) cm LV systole 5.1 cm LVOT Diameter 1.7 cm MV exc.(>10mm) cm Est.ejection fraction (50-75%) % DOPPLER: LVIT cm/sec A 42.0 cm/sec E 140 cm/sec LA cm/sec RVSP 40.1 mmHg LVOT 66.0 cm/sec AOP1/2T m/s Asc. Ao 114 cm/sec RVOT 43.0 cm/sec RA cm/sec PA 79.0 cm/sec AV Gradient Peak 5.2 mmHg AV Mean 2.5 mmHg AV Area 1.1 cm MV Gradient Peak 7.8 mmHg MV Mean 2.0 mmHg MV Area cm COMMENTS: Plastic Extruding Machine Operator: 1 LISA OROZCO Sleeve Presser Operator: 2 Dr. Ritchie TAPE# PACS Pericardial Effusion N DATE OF SERVICE: 02/16/2019 ECHOCARDIOGRAM DATE OF SERVICE: 02/16/2019 FINDINGS: 1. Left ventricular chamber size is dilated. Left ventricular systolic function is moderately reduced, overall ejection fraction is 30%. 2. Left atrium is enlarged at 5.0 cm. Right atrium and right ventricular ECHOCARDIOGRAM REPORT [id number] RICHARD PARK chamber sizes are as well mildly dilated. 3. Valvular structures have normal structure and motion. 4. Doppler interrogation reveals moderate mitral regurgitation, othqweef-xc-zldswh tricuspid regurgitation, no other valvular insufficiency or stenosis. Pulmonary systolic pressure is estimated at 40 mmHg. 5. No evidence of pericardial effusion or left ventricular thrombus. TRANSINT:[id number] Voice Confirmation ID: [id number] DOCUMENT ID: [id number] CAMILLA CAMEJO MD at 1127 CC: [id number] DICTATION DATE: 02/16/19 1607 ORGAN GRINDER: 02/16/19 2324 ADM IN [facility] [id number] [place] [address]
[2019-02-25 12:12] VITALS: BP 123/54
--- NOTE | 2019-02-25 13:51 | MORECARE ---
CASE MANAGEMENT DISCHARGE SUMMARY PATIENT: RICHARD DING UNIT: [id number] ADM DATE: 02/16/19 AGE: 68 : 48 SEX: F ROOM/BED: D.5058 AUTHOR: CORNELIUS LEON PHYSICIAN: REFERRING PHYSICIAN: KEENAN SILVA MD DATE OF SERVICE: 02/25/19 Discharge Plan Patient Name: RICHARD DING Facility: [facility]:[place] : 1950 Planned Disposition: Assisted Facility Anticipated Discharge Date: 02/25/19 Discharge Date: Expected LOS: 9 Initial Reviewer: [id number] Initial Review Date: 02/16/2019 Generated: 02/25/19 2:51 pm DCP- Discharge Planning Updated by [id number]: Franki Browne on 02/24/19 8:[address] Patient Name: RICHARD DING Encounter No: [id number] : 1950 Primary Insurance: MEDICARE A & B Anticipated DC Date: Planned Disposition: Assisted Facility External Planned Provider: [facility] MEDICARE REHAB BED Discharge Planning Comments: CM FAXED UPDATE TO [facility] AT [phone]. [facility] IS WORKING ON OUTPATIENT DIALYSIS CLINIC ARRANGEMENT. FOR DISCHARGE, FAX DISCHARGE INFORMATION TO [facility] AT [phone]. NURSE REPORT TO BE CALLED TO [facility] AT [phone]. [facility] TO ARRANGE VAN TRASPORTATION. Business Systems Advisor: Franki Browne DCP- Discharge Planning Updated by [id number]: Franki Browne on 02/23/19 10:[address] Patient Name: RICHARD DING Encounter No: [id number] : 1950 Primary Insurance: MEDICARE A & B Anticipated DC Date: Planned Disposition: Assisted Facility External Planned Provider: [facility], MEDICARE REHAB BED Discharge Planning Comments: CM SPOKE TO PT AND SPOUSE, COY, IN ROOM REGARDING DISCHARGE PLANNING AND NEEDS. SPOUSE CONFIRMS PLAN FOR PT TO RETURN TO [facility] FOR REHAB AT DISCHARGE. PT'S DAUGHTER WORKS THERE. CUSTODIAL FACILITY LISTING GIVEN, CHOICE SIGNED FOR [facility]. IMPORTANT MESSAGE FROM MEDICARE PROVIDED AND EXPLAINED. CM SPOKE TO [facility] AT [facility], WHO VERIFIED PT IS IN REHAB AT [place] AND THEY PLAN TO ACCEPT BACK AT DISCHARGE. MAREK MET WITH PT AND SPOUSE IN ROOM. FOR DISCHARGE, FAX DISCHARGE INFORMATION TO [facility] AT [phone]. NURSE REPORT TO BE CALLED TO [facility] AT [phone]. CM WATIING OUTPATIENT DIALYSIS CLINIC ARRANGEMENT AND MEDICAL STABILITY FOR PT TO RETURN TO REHAB. Business Systems Advisor: Franki Browne DCP- Discharge Planning Updated by [id number]: Franki Browne on 02/18/19 4:[address] Patient Name: RICHARD DING Admission Status: Urgent Accout number: [id number] Admission Date: 02-16-2019 : 1950 Admission Diagnosis: Attending: Keenan Silva Current LOS: 2 Anticipated DC Date: Planned Disposition: Assisted Facility Primary Insurance: MEDICARE A & B PLANNED EXERNAL PROVIDER: [facility] MEDICARE REHAB BED Discharge Planning Comments: CM ATTEMPTED TO ASSESS PT IN ROOM FOR DISCHARGE NEEDS AFTER RECEIVING ORDERS FOR TRANSPORT DRIVER CONSULT AND OUTPATIENT DIALYSIS UNIT ARRANGEMENT. PT WAS NOT ABLE TO PARTICIPATE IN ASSESSMENT. CM CALLED BOTH EMERGENCY CONTACTS LISTED FOR PT, SUMAYA ESTEVEZ, DAUGHTER, , THERE WAS NO ANSWER; RUBIO DING, SPOUSE, , CM LEFT MESSAGE ASKING FOR RETURN CALL. CM DID NOT RECEIVE RETURN CALL. PT'S ADDRESS ON FACE SHEET INDICATES [facility]. CM SPOKE TO [facility], [phone], WHO VERIFIED PT IS IN REHAB [facility] AND THEY PLAN TO ACCEPT BACK AT DISCHARGE. RN KIERRA CHRISTY NOTIFIED [facility] OF ORDER FOR OUTPATIENT DIALYSIS CLINIC ARRANGEMENT. CM FAXED UPDATE TO [facility] DION J[facility] AT [phone]. FOR DISCHARGE, FAX DISCHARGE INFORMATION TO [facility] AT [phone]. NURSE REPORT TO BE CALLED TO [facility] AT [phone]. CM WATIING OUTPATIENT DIALYSIS CLINIC ARRANGEMENT AND MEDICAL STABILITY FOR PT TO RETURN TO REHAB. Business Systems Advisor: Franki Browne DCPIA - Discharge Planning Initial Assessment Updated by [id number]: Franki Browne on 02/18/19 5:42 pm * Is the patient Alert and Oriented? No * Preadmission Environment Assisted Facility * Facility Name [facility] External Providers External Provider: OTHER-OTHER Next Contact Date: 02/25/2019 Service Request Date: Service Type: Resolution: Reviewer: Comments: Coverage Notice Reviewer: [id number] Zina Browne Notice Issued Date-Time: 02/23/2019 8:25 Notice Type: Patient Choice Letter Notice Delivered To: Family Member Relationship to Patient: Spouse Cleaning Team Member Name: rubio ding Delivery Method: HAND - Hand Delivered Hazle Days: Prior Verbal Notification: Recipient Understood Notice: Yes Recipient Signature: Yes Med Rec Note Co-signed by Attending: Coverage Notice Comment: carine guadalupe Reviewer: [id number] Zina Browne Notice Issued Date-Time: 02/23/2019 8:25 Notice Type: IM Discharge Notice Notice Delivered To: Family Member Relationship to Patient: Spouse Cleaning Team Member Name: rubio ding Delivery Method: HAND - Hand Delivered Hazel Days: Prior Verbal Notification: Recipient Understood Notice: Yes Recipient Signature: Yes Med Rec Note Co-signed by Attending: Coverage Notice Comment: Last DP export: 02/24/19 8:52 a Patient Name: RICHARD DING Page 90399 at 1351 All edits/amendments must be made on the electronic document DICTATION DATE: 02/25/19 135 PLANT CHANGER: RONNY 02/25/19 1351 RPT#: [id number] DC DATE: STATUS: ADM IN [facility] [address] [place] [address] END OF REPORT
--- NOTE | 2019-02-25 14:01 | MORECARE ---
CASE MANAGEMENT DISCHARGE SUMMARY PATIENT: RICHARD DING UNIT: [id number] ADM DATE: 02/16/19 AGE: 68 : 48 SEX: F ROOM/BED: D.2146 AUTHOR: CORNELIUS LEON PHYSICIAN: REFERRING PHYSICIAN: KEENAN SILVA MD DATE OF SERVICE: 02/25/19 Discharge Plan Patient Name: RICHARD DING Facility: [facility]:[place] : 1950 Planned Disposition: Fpc Facility Anticipated Discharge Date: 02/25/19 Discharge Date: Expected LOS: 9 Initial Reviewer: [id number] Initial Review Date: 02/16/2019 Generated: 02/25/19 3:00 pm Comments DCP- Discharge Planning Updated by [id number]: Franki Browne on 02/25/19 12:[address] Patient Name: RICHARD DING Encounter No: [id number] : 1950 Primary Insurance: MEDICARE A & B Anticipated DC Date: 02-25-2019 Planned Disposition: Fpc Facility External Planned Provider:[facility], MEDICARE REHAB BED Discharge Planning Comments: KIERRA FAXED UPDATE TO [facility] AT [phone]. [facility] IS WORKING ON OUTPATIENT DIALYSIS CLINIC ARRANGEMENT. CM FAXED DIALYSIS FLOW SHEETS TO [facility] AT HER REQUEST TO [phone]. CM CONTINUES TO WAIT OUTPATIENT DIALYSIS CLINIC ARRANGEMENT. FOR DISCHARGE, FAX DISCHARGE INFORMATION TO [facility] AT [phone]. NURSE REPORT TO BE CALLED TO [facility] AT [phone]. [facility] TO ARRANGE VAN TRASPORTATION. Cranberry Sorter: Franki Browne DCP- Discharge Planning Updated by [id number]: Franki Browne on 02/24/19 8:[address] Patient Name: RICHARD DING Encounter No: [id number] : 1950 Primary Insurance: MEDICARE A & B Anticipated DC Date: Planned Disposition: Fpc Facility External Planned Provider: [facility], MEDICARE REHAB BED Discharge Planning Comments: KIERRA FAXED UPDATE TO [facility] AT [phone]. [facility] IS WORKING ON OUTPATIENT DIALYSIS CLINIC ARRANGEMENT. FOR DISCHARGE, FAX DISCHARGE INFORMATION TO [facility] AT [phone]. NURSE REPORT TO BE CALLED TO [facility] AT [phone]. [facility] TO ARRANGE VAN TRASPORTATION. Cranberry Sorter: Franki Browne [facility]- Discharge Planning Updated by [id number]: Franki Browne on 02/23/19 10:[address] Patient Name: RICHARD DING Encounter No: [id number] : 1950 Primary Insurance: MEDICARE A & B Anticipated DC Date: Planned Disposition: Fpc Facility External Planned Provider: [facility] BED Discharge Planning Comments: CM SPOKE TO PT AND SPOUSE, SANIAGifty, IN ROOM REGARDING DISCHARGE PLANNING AND NEEDS. SPOUSE CONFIRMS PLAN FOR PT TO RETURN TO [facility] FOR REHAB AT DISCHARGE. PT'S DAUGHTER WORKS THERE. JAIL FACILITY LISTING GIVEN, CHOICE SIGNED FOR [facility]. IMPORTANT MESSAGE FROM MEDICARE PROVIDED AND EXPLAINED. CM SPOKE TO MAREK OF [facility] AT NURSES ST[facility], WHO VERIFIED PT IS IN REHAB AT [place] AND THEY PLAN TO ACCEPT BACK AT DISCHARGE. MAREK MET WITH PT AND SPOUSE IN ROOM. FOR DISCHARGE, FAX DISCHARGE INFORMATION TO [facility] AT [phone]. NURSE REPORT TO BE CALLED TO [facility] AT [phone]. CM WATIING OUTPATIENT DIALYSIS CLINIC ARRANGEMENT AND MEDICAL STABILITY FOR PT TO RETURN TO REHAB. Cranberry Sorter: Franki Browne [facility]- Discharge Planning Updated by [email or web address]: Franki Browne on 02/18/19 4:[address] Patient Name: RICHARD DING Admission Status: Urgent Accout number: [id number] Admission Date: 02-16-2019 : 1950 Admission Diagnosis: Attending: Keenan Silva Current LOS: 2 Anticipated DC Date: Planned Disposition: Fpc Facility Primary Insurance: MEDICARE A & B PLANNED EXERNAL PROVIDER: [facility], MEDICARE REHAB BED Discharge Planning Comments: CM ATTEMPTED TO ASSESS PT IN ROOM FOR DISCHARGE NEEDS AFTER RECEIVING ORDERS FOR MONEY LAUNDERING INVESTIGATOR CONSULT AND OUTPATIENT DIALYSIS UNIT ARRANGEMENT. PT WAS NOT ABLE TO PARTICIPATE IN ASSESSMENT. CM CALLED BOTH EMERGENCY CONTACTS LISTED FOR PT, SUMAYA ESTEVEZ, DAUGHTER, , THERE WAS NO ANSWER; RUBIO DING, SPOUSE, , CM LEFT MESSAGE ASKING FOR RETURN CALL. CM DID NOT RECEIVE RETURN CALL. PT'S ADDRESS ON FACE SHEET INDICATES [facility]. CM SPOKE TO MAREK OF [facility], [phone], WHO VERIFIED PT IS IN REHAB AT [place] AND THEY PLAN TO ACCEPT BACK AT DISCHARGE. RN KIERRA [facility] NOTIFIED [facility] OF ORDER FOR OUTPATIENT DIALYSIS CLINIC ARRANGEMENT. CM FAXED UPDATE TO [facility] DION [facility] AT [phone]. FOR DISCHARGE, FAX DISCHARGE INFORMATION TO [facility] AT [phone]. NURSE REPORT TO BE CALLED TO [facility] AT [phone]. CM WATIING OUTPATIENT DIALYSIS CLINIC ARRANGEMENT AND MEDICAL STABILITY FOR PT TO RETURN TO REHAB. Cranberry Sorter: Franki Browne DCPIA - Discharge Planning Initial Assessment Updated by ANABEL: Franki Browne on 02/18/19 5:42 pm * Is the patient Alert and Oriented? No * Preadmission Environment Fpc Facility * Facility Name [facility] Coverage Notice Reviewer: [id number] Browne Notice Issued Date-Time: 02/23/2019 8:25 Notice Type: Patient Choice Letter Notice Delivered To: Family Member Relationship to Patient: Spouse Cigar Machine Feeder Name: rubio ding Delivery Method: HAND - Hand Delivered Hazel Days: Prior Verbal Notification: Recipient Understood Notice: Yes Recipient Signature: Yes Med Rec Note Co-signed by Attending: Coverage Notice Comment: [facility] Reviewer: [id number] Browne Notice Issued Date-Time: 02/23/2019 8:25 Notice Type: IM Discharge Notice Notice Delivered To: Family Member Relationship to Patient: Spouse Cigar Machine Feeder Name: rubio ding Delivery Method: HAND - Hand Delivered Hazel Days: Prior Verbal Notification: Recipient Understood Notice: Yes Recipient Signature: Yes Med Rec Note Co-signed by Attending: Coverage Notice Comment: Last DP export: 02/25/19 12:51 p Patient Name: RICHARD DING Page 32952 at 1401 All edits/amendments must be made on the electronic document DICTATION DATE: 02/25/19 1400 LOAN ANALYST: RONNY 02/25/19 1400 RPT#: [id number] DC DATE: STATUS: ADM IN [facility] [address] [place] [address] END OF REPORT
--- NOTE | 2019-02-25 17:19 | MORECARE ---
CASE MANAGEMENT DISCHARGE SUMMARY PATIENT: RICHARD DING UNIT: [id number] ADM DATE: 02/16/19 AGE: 68 : 48 SEX: F ROOM/BED: D.6769 AUTHOR: CORNELIUS LEON PHYSICIAN: REFERRING PHYSICIAN: KEENAN SILVA MD DATE OF SERVICE: 02/25/19 Discharge Plan Patient Name: RICHARD DING Facility: [facility]:[place] : 1950 Planned Disposition: [facility] Facility Anticipated Discharge Date: 02/25/19 Discharge Date: Expected LOS: 9 Initial Reviewer: [id number] Initial Review Date: 02/16/2019 Generated: 02/25/19 6:18 pm Comments DCP- Discharge Planning Updated by [id number]: Franki Browne on 02/25/19 12:[address] Patient Name: RICHARD DING Encounter No: [id number] : 1950 Primary Insurance: MEDICARE A & B Anticipated DC Date: 02-25-2019 Planned Disposition: [facility] Facility External Planned Provider:[facility], MEDICARE REHAB BED Discharge Planning Comments: KIERRA FAXED UPDATE TO [facility] AT [phone]. [facility] IS WORKING ON OUTPATIENT DIALYSIS CLINIC ARRANGEMENT. CM FAXED DIALYSIS FLOW SHEETS TO [facility] AT HER REQUEST TO [phone]. CM CONTINUES TO WAIT OUTPATIENT DIALYSIS CLINIC ARRANGEMENT. FOR DISCHARGE, FAX DISCHARGE INFORMATION TO [facility] AT [phone]. NURSE REPORT TO BE CALLED TO [facility] AT [phone]. [facility] TO ARRANGE VAN TRASPORTATION. Engineering Specialist Technician: Franki Browne DCP- Discharge Planning Updated by [id number]: Franki Browne on 02/24/19 8:[address] Patient Name: RICHARD DING Encounter No: [id number] : 1950 Primary Insurance: MEDICARE A & B Anticipated DC Date: Planned Disposition: [facility] Facility External Planned Provider: [facility], MEDICARE REHAB BED Discharge Planning Comments: KIERRA FAXED UPDATE TO [facility] AT [phone]. [facility] IS WORKING ON OUTPATIENT DIALYSIS CLINIC ARRANGEMENT. FOR DISCHARGE, FAX DISCHARGE INFORMATION TO [facility] AT [phone]. NURSE REPORT TO BE CALLED TO [facility] AT [phone]. [facility] TO ARRANGE VAN TRASPORTATION. Engineering Specialist Technician: Franki Browne [facility]- Discharge Planning Updated by [id number]: Franki Browne on 02/23/19 10:[address] Patient Name: RICHARD DING Encounter No: [id number] : 1950 Primary Insurance: MEDICARE A & B Anticipated DC Date: Planned Disposition: [facility] Facility External Planned Provider: [facility] B[facility] Discharge Planning Comments: CM SPOKE TO PT AND SPOUSE, [employer]ty, IN ROOM REGARDING DISCHARGE PLANNING AND NEEDS. SPOUSE CONFIRMS PLAN FOR PT TO RETURN TO [facility] FOR REH[place] AT DISCHARGE. PT'S DAUGHTER WORKS THERE. LONGTERM FACILITY LISTING GIVEN, CHOICE SIGNED FOR [facility]. IMPORTANT MESSAGE FROM MEDICARE PROVIDED AND EXPLAINED. CM SPOKE TO MAREK OF [facility] AT NURSES [facility], WHO VERIFIED PT IS IN REHAB AT [place] AND THEY PLAN TO ACCEPT BACK AT DISCHARGE. [facility]K MET WITH PT AND SPOUSE IN ROOM. FOR DISCHARGE, FAX DISCHARGE INFORMATION TO [facility] AT [phone]. NURSE REPORT TO BE CALLED TO [facility] AT [phone]. CM WATIING OUTPATIENT DIALYSIS CLINIC ARRANGEMENT AND MEDICAL STABILITY FOR PT TO RETURN TO REHAB. Engineering Specialist Technician: Franki Browne [facility]- Discharge Planning Updated by [id number]: Franki Browne on 02/18/19 4:[address] Patient Name: RICHARD DING Admission Status: Urgent Accout number: [id number] Admission Date: 02-16-2019 : 1950 Admission Diagnosis: Attending: Keenan Silva Current LOS: 2 Anticipated DC Date: Planned Disposition: [facility] Facility Primary Insurance: MEDICARE A & B PLANNED EXERNAL PROVIDER: [facility], MEDICARE REHAB BED Discharge Planning Comments: CM ATTEMPTED TO ASSESS PT IN ROOM FOR DISCHARGE NEEDS AFTER RECEIVING ORDERS FOR MANUFACTURING BUSINESS ANALYST CONSULT AND OUTPATIENT DIALYSIS UNIT ARRANGEMENT. PT WAS NOT ABLE TO PARTICIPATE IN ASSESSMENT. CM CALLED BOTH EMERGENCY CONTACTS LISTED FOR PT, SUMAYA ESTEVEZ, DAUGHTER, , THERE WAS NO ANSWER; RUBIO DING, SPOUSE, , CM LEFT MESSAGE ASKING FOR RETURN CALL. CM DID NOT RECEIVE RETURN CALL. PT'S ADDRESS ON FACE SHEET INDICATES [facility]. CM SPOKE TO MAREK OF [facility] [place], [phone], WHO VERIFIED PT IS IN REHAB AT [place] [facility] AND THEY PLAN TO ACCEPT BACK AT DISCHARGE. RN KIERRA HOUSE NOTIFIED [facility] OF ORDER FOR OUTPATIENT DIALYSIS CLINIC ARRANGEMENT. CM FAXED UPDATE TO [facility] AT [phone]. FOR DISCHARGE, FAX DISCHARGE INFORMATION TO [facility] AT [phone]. NURSE REPORT TO BE CALLED TO [facility] AT [phone]. CM WATIING OUTPATIENT DIALYSIS CLINIC ARRANGEMENT AND MEDICAL STABILITY FOR PT TO RETURN TO REHAB. Engineering Specialist Technician: Franki Browne DCPIA - Discharge Planning Initial Assessment Updated by ANABEL: Franki Browne on 02/18/19 5:42 pm * Is the patient Alert and Oriented? No * Preadmission Environment [facility] Facility * Facility Name [facility] Coverage Notice Reviewer: [id number] Browne Notice Issued Date-Time: 02/23/2019 8:25 Notice Type: Patient Choice Letter Notice Delivered To: Family Member Relationship to Patient: Spouse Senior Cost Analyst Name: rubio ding Delivery Method: HAND - Hand Delivered Hazel Days: Prior Verbal Notification: Recipient Understood Notice: Yes Recipient Signature: Yes Med Rec Note Co-signed by Attending: Coverage Notice Comment: [facility] Reviewer: [id number] Browne Notice Issued Date-Time: 02/23/2019 8:25 Notice Type: IM Discharge Notice Notice Delivered To: Family Member Relationship to Patient: Spouse Senior Cost Analyst Name: rubio ding Delivery Method: HAND - Hand Delivered Hazel Days: Prior Verbal Notification: Recipient Understood Notice: Yes Recipient Signature: Yes Med Rec Note Co-signed by Attending: Coverage Notice Comment: Last DP export: 02/25/19 1:00 p Patient Name: RICHARD DING Page 81592 at 4960 All edits/amendments must be made on the electronic document DICTATION DATE: 02/25/191717 ACCOUNTS RECEIVABLE ANALYST: RONNY 02/25/191717 RPT#: [id number] DC DATE: STATUS: ADM IN [facility] [address] [place] [address] END OF REPORT
--- NOTE | 2019-02-25 17:27 | MORECARE ---
CASE MANAGEMENT DISCHARGE SUMMARY PATIENT: RICHARD DING UNIT: [id number] ADM DATE: 02/16/19 AGE: 68 : 48 SEX: F ROOM/BED: D.2391 AUTHOR: EDWARD,DOC PHYSICIAN: REFERRING PHYSICIAN: KEENAN SILVA MD DATE OF SERVICE: 02/25/19 Discharge Plan Patient Name: RICHARD DING Facility: [facility]:[place] : 1950 Planned Disposition: Senior Living Facility Anticipated Discharge Date: 02/25/19 Discharge Date: Expected LOS: 9 Initial Reviewer: [id number] Initial Review Date: 02/16/2019 Generated: 02/25/19 6:27 pm Comments DCP- Discharge Planning Updated by [id number]: Franki Browne on 02/25/19 4:[address] Patient Name: RICHARD DING Encounter No: [id number] : 1950 Primary Insurance: MEDICARE A & B Anticipated DC Date: 02-25-2019 Planned Disposition: Senior Living Facility External Planned Provider: [facility] KIRERA RECEIVED CALL FROM ROSE WHO INFORMED CM THAT PT HAS OUTPATIENT DIALYSIS CLINIC ARRANGEMENT AT [facility], [facility], [facility], FIRST APPOINTMENT THURSDAY AND PT'S SPOUSE NEEDS TO BE THERE TO SIGN PAPERS. CM NOTIFIED PT AND SPOUSE IN ROOM, PT'S SPOUSE AGREES TO BE AT DIALYSIS THURSDAY MORNING TO SIGN NEEDED DOCUMENTS, PT'S SPOUSE AND SISTER IN AGREEMENT WITH DISCHARGE TO [facility] FOR CONTINUED REHAB. CM NOTIFED NORMAN SHEPHERD WHO SPOKE TO NURSE AND PROVIDED DISCHARGE ORDERS. CM NOTIFIED MAREK OF [facility] WHO INFORMED CM THAT [facility] MEDICAL OFFICE RECEPTIONIST PT IN 15 MINUTES, CM SPOKE TO BEDSIDE NURSE WHO REQUESTED 30 MINUTES TO COMPLETE DISCHARGE AND GET PT READY TO GO. CM NOTIFIED [facility]. HUMAN RESOURCES DIRECTOR ARRIVED TO MEDICAL OFFICE RECEPTIONIST PT APPROXIMATELY 5 MINUTES LATER. CM FAXED DISCHARGE INFORMATION TO [facility] AT [phone]. NURSE REPORT TO BE CALLED TO [facility] AT [phone]. [facility] [place] [facility] FOR [facility] TO REHAB FACILITY. Razor Sharpener: Franki Browne DCP- Discharge Planning Updated by [id number]: Franki Browne on 02/25/19 12:[address] Patient Name: RICHARD DING Encounter No: [id number] : 1950 Primary Insurance: MEDICARE A & B Anticipated DC Date: 02-25-2019 Planned Disposition: Senior Living Facility External Planned Provider:[facility] Discharge Planning Comments: CM FAXED UPDATE TO [facility] AT [phone]. [facility] IS WORKING ON OUTPATIENT DIALYSIS CLINIC ARRANGEMENT. CM FAXED DIALYSIS FLOW SHEETS TO [facility] AT HER REQUEST TO [phone]. CM CONTINUES TO WAIT OUTPATIENT DIALYSIS CLINIC ARRANGEMENT. FOR DISCHARGE, FAX DISCHARGE INFORMATION TO [facility] AT [phone]. NURSE REPORT TO BE CALLED TO [facility] AT [phone]. [facility] TO ARRANGE VAN TRASPORTATION. Razor Sharpener: Franki Browne AZP- Discharge Planning Updated by [id number]: Franki Browne on 02/24/19 8:[address] Patient Name: RICHARD DING Encounter No: [id number] : 1950 Primary Insurance: MEDICARE A & B Anticipated DC Date: Planned Disposition: Senior Living Facility External Planned Provider: [facility] Discharge Planning Comments: KIERRA FAXED UPDATE TO [facility] AT [phone]. [facility] AGUILAR [facility] IS WORKING ON OUTPATIENT DIALYSIS CLINIC ARRANGEMENT. FOR DISCHARGE, FAX DISCHARGE INFORMATION TO [facility] AT [phone]. NURSE REPORT TO BE CALLED TO [facility] AT [phone]. [facility] TO ARRANGE VAN TRASPORTATION. Razor Sharpener: Franki Browne AZP- Discharge Planning Updated by [id number]: Franki Browne on 02/23/19 10:[address] Patient Name: RICHARD DING Encounter No: [id number] : 1950 Primary Insurance: MEDICARE A & B Anticipated DC Date: Planned Disposition: Senior Living Facility External Planned Provider: [facility] Discharge Planning Comments: CM SPOKE TO PT AND SPOUSE, COY, IN ROOM REGARDING DISCHARGE PLANNING AND NEEDS. SPOUSE CONFIRMS PLAN FOR PT TO RETURN TO [facility] FOR REHAB AT DISCHARGE. PT'S DAUGHTER WORKS THERE. RESIDENTIAL FACILITY LISTING GIVEN, CHOICE SIGNED FOR [facility]. IMPORTANT MESSAGE FROM MEDICARE PROVIDED AND EXPLAINED. CM SPOKE TO [facility] AT NURSES STATION, WHO VERIFIED PT IS IN REHAB AT [facility] AND THEY PLAN TO ACCEPT BACK AT DISCHARGE. MAREK MET WITH PT AND SPOUSE IN ROOM. FOR DISCHARGE, FAX DISCHARGE INFORMATION TO [facility] AT [phone]. NURSE REPORT TO BE CALLED TO [facility] AT [phone]. CM WATIING OUTPATIENT DIALYSIS CLINIC ARRANGEMENT AND MEDICAL STABILITY FOR PT TO RETURN TO REHAB. Razor Sharpener: Franki Browne DCP- Discharge Planning Updated by [id number]: Franki Browne on 02/18/19 4:[address] Patient Name: RICHARD DING Admission Status: Urgent Accout number: [id number] Admission Date: 02-16-2019 : 1950 Admission Diagnosis: Attending: Keenan Silva Current LOS: 2 Anticipated DC Date: Planned Disposition: Senior Living Facility Primary Insurance: MEDICARE A & B PLANNED EXERNAL PROVIDER: [facility] Discharge Planning Comments: CM ATTEMPTED TO ASSESS PT IN ROOM FOR DISCHARGE NEEDS AFTER RECEIVING ORDERS FOR HOME PLANNING CONSULTANT SALESPERSON CONSULT AND OUTPATIENT DIALYSIS UNIT ARRANGEMENT. PT WAS NOT ABLE TO PARTICIPATE IN ASSESSMENT. CM CALLED BOTH EMERGENCY CONTACTS LISTED FOR PT, SUMAYA ESTEVEZ, DAUGHTER, , THERE WAS NO ANSWER; RUBIO DING, SPOUSE, , CM LEFT MESSAGE ASKING FOR RETURN CALL. CM DID NOT RECEIVE RETURN CALL. PT'S ADDRESS ON FACE SHEET INDICATES [facility]. CM SPOKE TO [facility], [phone], WHO VERIFIED PT IS IN REHAB AT [facility] AND THEY PLAN TO ACCEPT BACK AT DISCHARGE. RN KIERRA CHRISTY NOTIFIED [facility] OF ORDER FOR OUTPATIENT DIALYSIS CLINIC ARRANGEMENT. CM FAXED UPDATE TO [facility] AT [phone]. FOR DISCHARGE, FAX DISCHARGE INFORMATION TO [facility] AT [phone]. NURSE REPORT TO BE CALLED TO [facility] AT [phone]. CM WATIING OUTPATIENT DIALYSIS CLINIC ARRANGEMENT AND MEDICAL STABILITY FOR PT TO RETURN TO REHAB. Razor Sharpener: rFanki Browne DCPIA - Discharge Planning Initial Assessment Updated by [id number]: Franki Browne on 02/18/19 5:42 pm * Is the patient Alert and Oriented? No * Preadmission Environment Senior Living Facility * [facility] Coverage Notice Reviewer: [id number] Zina Browne Notice Issued Date-Time: 02/23/2019 8:25 Notice Type: Patient Choice Letter Notice Delivered To: Family Member Relationship to Patient: Spouse Claim Examiner Name: rubio ding Delivery Method: HAND - Hand Delivered Hazel Days: Prior Verbal Notification: Recipient Understood Notice: Yes Recipient Signature: Yes Med Rec Note Co-signed by Attending: Coverage Notice Comment: carine guadalupe Reviewer: [id number] Zina Browne Notice Issued Date-Time: 02/23/2019 8:25 Notice Type: IM Discharge Notice Notice Delivered To: Family Member Relationship to Patient: Spouse Claim Examiner Name: rubio ding Delivery Method: HAND - Hand Delivered Hazel Days: Prior Verbal Notification: Recipient Understood Notice: Yes Recipient Signature: Yes Med Rec Note Co-signed by Attending: Coverage Notice Comment: Last DP export: 02/25/19 4:18 p Patient Name: RICHARD DING Page 95814 at 1727 All edits/amendments must be made on the electronic document DICTATION DATE: 02/25/191725 ELECTRICAL SIGN WIRER: RONNY 02/25/191725 RPT#: [id number] DC DATE: STATUS: ADM IN [facility] [address] [place] [address] END OF REPORT
--- NOTE | 2019-02-25 17:28 | NUR ---
PT D/C TO SNF. DEVELOPMENT SYSTEM EFFICIENCY MANAGER CAME IN 10 MINUTES AFTER BEING AMDE AWARE. I HAD NO D/C ORDER. RUSHED TO GET IT DONE, DEVELOPMENT SYSTEM EFFICIENCY MANAGER WAS VERY RUDE. PT LOADED TO WHEELCAHIR USING HOIYER LIFT. NO COMPLICATIONS. DEVELOPMENT SYSTEM EFFICIENCY MANAGER ESCORTED PT OUT.
== END 2019-02-25 17:31 | DRG 291 ==
LOC: D.M2 12:56
PROVIDERS: Internal Medicine Nephrology; ADMIT Internal Medicine Nephrology; ATTEND Internal Medicine Nephrology
PROC: 5A1D70Z Performance of Urinary Filtration, Intermittent, Less than 6 Hours Per Day (ICD-10-PCS; principal; 2019-02-17)
PROC: 05HM33Z Insertion of Infusion Device into Right Internal Jugular Vein, Percutaneous Approach (ICD-10-PCS; 2019-02-18)
PROC: B5131ZA Fluoroscopy of Right Jugular Veins using Low Osmolar Contrast, Guidance (ICD-10-PCS; 2019-02-18)
DX: I13.2 Hypertensive heart and chronic kidney disease with heart failure and with stage 5 chronic kidney disease, or end stage renal disease (principal); N18.6 End stage renal disease; I50.23 Acute on chronic systolic (congestive) heart failure; Z68.43 Body mass index [BMI] 50.0-59.9, adult; E11.22 Type 2 diabetes mellitus with diabetic chronic kidney disease; Z86.73 Personal history of transient ischemic attack (TIA), and cerebral infarction without residual deficits; F03.90 Unspecified dementia, unspecified severity, without behavioral disturbance, psychotic disturbance, mood disturbance, and anxiety; Z87.891 Personal history of nicotine dependence; I25.10 Atherosclerotic heart disease of native coronary artery without angina pectoris; E66.01 Morbid (severe) obesity due to excess calories; E78.5 Hyperlipidemia, unspecified; Z91.81 History of falling; D63.1 Anemia in chronic kidney disease; I48.2 Chronic atrial fibrillation